=== PATIENT | male | born 1960 | race Caucasian/White ===

== ENCOUNTER 2023-10-08 13:24 | Observation (INO) | payer OTHER ==
[2023-10-08 13:34] VITALS: RESP 18; BMI 29.3
[2023-10-08] MEDS: METHOCARBAMOL 500 MG TABLET PO ONE (16:20)
[2023-10-08] MEDS: LIDOCAINE 4% PATCH TP ONE (16:20)
[2023-10-08] MEDS ORDERED: LIDOCAINE 4% PATCH TP ONE (16:27)
[2023-10-08] MEDS ORDERED: ACETAMINOPHEN 325 MG TABLET (FP) ONE (16:27)
[2023-10-08] MEDS ORDERED: METHOCARBAMOL 500 MG TABLET ONE (16:29)
[2023-10-08] MEDS: ACETAMINOPHEN 500 MG TABLET (FP) PO ONE (16:50)
[2023-10-08 18:33] LABS: BASO % 0.7 % (0-2.0); EOS % 1.5 % (0-4.5); HEMATOCRIT 46.1 % (35.4-49); HEMOGLOBIN 15.4 GM/dL (11.7-16.9); LYMPH % 33.4 % (8-40); MCH 30.7 pg (25.7-33.7); MCHC 33.4 g/dl (32.0-35.9); MEAN PLT VOLUME 7.1 fl (7.5-11.1); MONO % 7.7 % (3.8-10.2); NEUT % 56.7 % (42.8-82.8); PLATELET COUNT 335 10^3/uL (134-434); RBC 5.01 M/mm3 (4.00-5.60); RDW 13.9 % (11.9-15.9); WHITE BLOOD COUNT 10.8 K/mm3 (4.0-10.0)
[2023-10-08 18:47] LABS: POTASSIUM 3.9 mmol/L (3.5-5.1)
[2023-10-08 18:49] LABS: CALCIUM 9.5 mg/dL (8.5-10.1)
[2023-10-08 18:50] LABS: ALBUMIN 3.8 g/dl (3.4-5.0); BLOOD UREA NITROGEN 18.5 mg/dL (7-18)
[2023-10-08 18:55] LABS: BILIRUBIN,TOTAL 0.8 mg/dL (0.2-1); TOT PROT 6.7 g/dl (6.4-8.2)
[2023-10-08] MEDS: LIDOCAINE PATCH REMOVAL MC SCH (21:51)
[2023-10-09] MEDS: ACETAMINOPHEN 1000 MG/100 ML BAG IVPB PRN (01:32)
[2023-10-09] MEDS ORDERED: ALBUTEROL SO4 2.5/IPRATROPIUM 0.5 INH SOL 3 ML VIAL.NEB. NEB PRN (02:11)
[2023-10-09] MEDS ORDERED: INSULIN ASPART SLIDING SCALE (NOVOLOG) 1 VIAL SQ SCH (07:00)
[2023-10-09 08:04] LABS: BASO % 1.2 % (0-2.0); HEMATOCRIT 46.6 % (35.4-49); HEMOGLOBIN 15.7 GM/dL (11.7-16.9); MCH 31.1 pg (25.7-33.7); MCHC 33.7 g/dl (32.0-35.9); MEAN CELL VOLUME 92.4 fl (80-96); MEAN PLT VOLUME 7.3 fl (7.5-11.1); MONO % 8.6 % (3.8-10.2); NEUT % 48.2 % (42.8-82.8); PLATELET COUNT 307 10^3/uL (134-434); RBC 5.04 M/mm3 (4.00-5.60); RDW 13.8 % (11.9-15.9); WHITE BLOOD COUNT 8.1 K/mm3 (4.0-10.0)
[2023-10-09 08:10] LABS: BLOOD UREA NITROGEN 17.8 mg/dL (7-18); CALCIUM 8.9 mg/dL (8.5-10.1)
[2023-10-09 08:11] LABS: MAGNESIUM 2.1 mg/dL (1.8-2.4)
[2023-10-09 08:14] LABS: CREATININE 0.8 mg/dL (0.55-1.3); PHOSPHOROUS 2.6 mg/dL (2.5-4.9)
[2023-10-09] MEDS: TAMSULOSIN HCL 0.4 MG CAP PO SCH (09:10)
[2023-10-09] MEDS: ENOXAPARIN NA (PORCINE) 40 MG/0.4 ML DISP.SYRIN SQ SCH (10:38)
[2023-10-09 11:33] LABS: PH,URINE 7.5 (5.0-8.0); URINE APPEARANCE TURBID; URINE BILIRUBIN NEGATIVE (NEGATIVE); URINE COLOR YELLOW; URINE GLUCOSE (UA) NEGATIVE (NEGATIVE); URINE KETONE NEGATIVE (NEGATIVE); URINE LEUK ESTERASE NEGATIVE (NEGATIVE); URINE NITRITE NEGATIVE (NEGATIVE); URINE PROTEIN NEGATIVE (NEGATIVE); URINE UROBILINOGEN 0.2 mg/dL (0.2-1.0)
[2023-10-09] MEDS: INSULIN ASPART SLIDING SCALE (NOVOLOG) 1 VIAL SQ SCH (16:35)
[2023-10-09] MEDS: DIVALPROEX NA *ER* EXTEND REL 500 MG TABLET.SA (FP) PO SCH (21:07)
[2023-10-09] MEDS: PRAMIPEXOLE DIHYDROCHLORIDE 0.25 MG TABLET PO SCH (21:07)
[2023-10-09] MEDS: ROSUVASTATIN CA 20 MG TABLET PO SCH (21:07)
[2023-10-09] MEDS: FLUTICASONE/SALMETEROL (WIXELA) 100 MCG/50 MCG DISKUS IH SCH (21:07)
[2023-10-10] MEDS: METHOCARBAMOL 500 MG TABLET PO ONE (04:00)
[2023-10-10 08:44] LABS: IRON SERUM 116 ug/dL (50-175)
[2023-10-10 08:45] LABS: TOTAL IRON BINDING CAPACITY 331 ug/dL (250-450)
[2023-10-10] MEDS: LIDOCAINE 5% TOPICAL PATCH TP SCH (10:31)
[2023-10-10] MEDS: KETOROLAC TROMETHAMINE 10 MG TABLET PO SCH (15:50)
[2023-10-10] MEDS: LIDOCAINE PATCH REMOVAL MC SCH (22:44)
[2023-10-11] MEDS: ACETAMINOPHEN 1000 MG/100 ML BAG IVPB PRN (01:12)
[2023-10-11 08:59] VITALS: BP 155/83; PULSE 75; TEMP 98.4
[2023-10-11] MEDS: NICOTINE 21 MG/24 HOURS TOPICAL PATCH TD SCH (09:43)
== END 2023-10-11 13:38 | disposition home or self-care (01) ==
LOC: JER 13:24 → JERBED 20:15 → J7W 23:49
PROVIDERS: ADMIT Internal Medicine; ATTEND Registered Nurse
PROC: 3E033NZ Introduction of Analgesics, Hypnotics, Sedatives into Peripheral Vein, Percutaneous Approach (ICD-10-PCS; principal; 2023-10-08)
PROC: 3E023GC Introduction of Other Therapeutic Substance into Muscle, Percutaneous Approach (ICD-10-PCS; 2023-10-08)
DX: M48.00 Spinal stenosis, site unspecified (principal); G25.81 Restless legs syndrome; F31.9 Bipolar disorder, unspecified; E78.5 Hyperlipidemia, unspecified; G43.909 Migraine, unspecified, not intractable, without status migrainosus; I10 Essential (primary) hypertension; J44.9 Chronic obstructive pulmonary disease, unspecified; E11.9 Type 2 diabetes mellitus without complications; Z88.8 Allergy status to other drugs, medicaments and biological substances
CPT/HCPCS: 36415; 72148-TC; 80048; 80053; 81003; 82962; 83036; 83540; 83550; 83735; 84100; 85025; 96372; 96374; 96376; 97116-GP; 97162-GP; 99285-25; G0378; J0131